=== PATIENT | female | born 2000 | race Caucasian/White ===

== ENCOUNTER 2023-09-21 09:18 | Outpatient (CLI) | payer BC, SELFPAY ==
[2023-09-23 08:24] LABS: Hepatitis B Surf Ab Quant 11.3 mIU/mL (Immunity>10)
== END 2023-09-21 23:59 | disposition home or self-care (01) ==
LOC: LAB.DROPOF 09-22 09:19
PROVIDERS: PCP Internal Medicine; Visit Provider Internal Medicine
DX: Z92.29 Personal history of other drug therapy (principal); Z02.0 Encounter for examination for admission to educational institution
CPT/HCPCS: 86706

== ENCOUNTER 2024-10-09 12:00 | Outpatient (CLI) | payer BC, SELFPAY ==
[2024-10-09 14:34] LABS: Hematocrit 41.1 % (37.0-47.0); Hemoglobin 13.4 g/dL (12.2-16.2); Immature Granulocytes % 0.3 %; Mean Corpuscular HGB Conc 32.6 g/dL (31.8-35.4); Mean Corpuscular Hemoglobin 27.9 pg (27.0-31.2); Mean Corpuscular Volume 85.6 fl (81-99); Nucleated Red Blood Cells % 0 %; Platelet Count 429 K/mm3 (142-424); Red Blood Count 4.80 M/mm3 (4.20-5.40); Red Cell Distribution Width-SD 39.9 fL; White Blood Count 6.6 K/mm3 (4.8-10.8)
--- OUTSIDE RECORDS SUMMARY | 2024-10-10 13:05 | XMS_ITS | Patient Health Record ---
Author Organization [facility] Address [address] [place] [address] Care Team Providers Care Dynamite Cartridge Crimper Name Role Phone NO PCP Primary Care Provider Marcos Koch Unavailable [phone] Allergies Allergen (clinical drug ingredient) Drug/Non Drug Allergy documented on EMR Reaction Allergy Type Onset Date Status amoxicillin Amoxicillin gastrointestinal upset Drug Allergy Active sulfamethoxazole / trimethoprim Bactrim anaphylaxis Drug Allergy Active Results Component Value Reference Range Notes Flu/COVID Rapid Antigen ([facility]) Reviewed date:04/03/2024 12:40:39 PM Interpretation:Negative Performing Lab: Notes/Report: Negative Flu A negative Negative - Positive Flu B negative Negative - Positive SARS CoV 2 negative Negative - Positive Rapid Strep Screen ([facility]) Reviewed date:04/03/2024 12:40:06 PM Interpretation:Negative Performing Lab: Notes/Report: Negative Negative negative Reason For Referral No Information Medications Medication SIG (Take, Route, Frequency, Duration) Notes Start Date End Date Status Escitalopram Oxalate 10 MG Oral Active Wellbutrin XL 150 MG 1 tablet in the mor clara Orally Once a day Active Albuterol Sulfate HFA 108 (90 Base) MCG/ACT 2 puffs as needed Inhalation every 6 hours; Duration: 10 days 04/03/2024 Active Phenergan 25 MG/ML as directed Injection Active Ondansetron 4 MG 1 tablet on the tong ue and allow to dissolve Orally Once a day Active Famotidine 20 MG 1 tablet at bedtime as needed Orally Once a day Active 28-0.8 MG 1 tablet Orally Once a day Active Social History Tobacco Use: Social History Observation Description Date Details (start date - stop date) Never Smoker NA - NA Tobacco Control (Standard) Question Answer Notes Tobacco use: Nonsmoker AUDIT-C (Standard) Question Answer Notes Did you have a drink containing alcohol in the p ast year? No Points 0 Interpretation Negative Problems Problem Type SNOMED Code ICD Code Onset Dates Problem Status W/U Status Risk Notes Problem Seasonal allergy (760601856) Seasonal allergies (J30.2) Active confirmed Problem Anxiety (83571848) Anxiety (F41.9) Active confirmed Problem Depression (184603510) Depression (F32.A) Active confirmed Problem Obesity (458305358) Obesity (BMI 30-39.9) (E66.9) Active confirmed Problem Body mass index 30.00 to 34.99 (461169756107355 ) BMI 31.0-31.9,adult (Z68.31) Active confirmed Problem Obesity due to excess calories (056454456) Other obesity due to excess calories (E66.09) Active confirmed Problem Body mass index 30.00 to 34.99 (493366643253579 ) Body mass index [BMI] 31.0-31.9, adult (Z68.31) Active confirmed Problem Acute respiratory infection (848724640) Acute respiratory infection (J98.8) Active confirmed Problem Sinus congestion (91610645) Sinus congestion (R09.81) Active confirmed Problem Non-suppurative otitis media (165321582) Middle ear effusion, bilateral (H65.93) Active confirmed Problem Acute bilateral otitis media (766320834) Acute bilateral otitis media (H66.93) Active confirmed Problem gestation period, 23 weeks (83550134) 23 weeks gestation of (Z3A.23) Active confirmed Problem Elevated blood pressure (31166777) Elevated blood pressure (I10) Active confirmed Vital Signs Temperature 98.1 degrees Fahrenheit 04/03/2024 Respiratory Rate 18 /min 04/03/2024 Blood pressure diastolic 78 mm Hg 04/03/2024 Height 067 in 04/03/2024 Blood pressure systolic 126 mm Hg 04/03/2024 Weight 0240 lbs 04/03/2024 BMI 37.59 kg/m2 04/03/2024 Encounters Encounter Location Date Provider Diagnosis [address] [address] 04/03/2024 Marcos Morseome 23 weeks gestation of Z3A.23 ; Acute respiratory infection J98.8 ; Acute bilateral otitis media H66.93 ; Middle ear effusion, bilateral H65.93 ; Sinus congestion R09.81 ; Elevated blood pressure I10 ; Encounter for screening for COVID-19 Z11.52 and Sore throat J02.9 Assessments Encounter Date Diagnosis (ICD Code) Assessment Notes Treatment Notes Treatment Clinical Notes Section Notes 04/03/2024 23 weeks gestation of (ICD-10 - Z3A.23) Weeks 22 to 26 of Your : Care Instructions material was published 04/03/2024 Acute respiratory infection (ICD-10 - J98.8) Patient will clear medications with BUILD MANAGER before taking. Will also inquire if she can taken Mucinex. 04/03/2024 Acute bilateral otitis media (ICD-10 - H66.93) Ear Infection (Otitis Media): Care Instructions material was published 04/03/2024 Middle ear effusion, bilateral (ICD-10 - H65.93) Middle Ear Fluid: Care Instructions material was published 04/03/2024 Sinus congestion (ICD-10 - R09.81) 04/03/2024 Elevated blood pressure (ICD-10 - I10) 04/03/2024 Encounter for screening for COVID-19 (ICD-10 - Z11.52) 04/03/2024 Sore throat (ICD-10 - J02.9) Sore Throat: Care Instructions material was published 04/03/2024 Other Cephalexin material was published, Albuterol Oral Inhalation material was published Plan Of Treatment No Information Insurance Providers Payer Name Payer Address Payer Phone Subscriber Number Group Number Insured Name Patient Relationship to Insured Coverage Start Date Coverage End Date [facility] [address] [place] [address] [phone] [id number] JEANNETTE KEITH Self - patient is the insured Medical (General) History Medical History History ICD Code Seasonal allergies J30.2 Anxiety F41.9 Depression F32.A 23 weeks gerd morning sickness Surgical History Surgery Date(Month/Year) gum graph eye muscle surgery T & A bone cyst removed from left humerous Hospitalization History Reason Date(Month/Year) surgeries
--- OUTSIDE RECORDS SUMMARY | 2024-10-10 13:05 | XMS_ITS | Encounter Summary ---
Author Organization Healthcare Address [address] [place] [id number] Care Team Providers Care Press Room Supervisor Name Role Phone Brandon Mike MD Primary Care Provider [phone] Encounter Details Date Type Department Care Team (Late st Contact Info) Description 06/29/2024 Results Follow-Up Obstetrics & Gynecology [address] [place] [address] Brandon Mike MD [address] [place] [address] Social History Tobacco Use Types Packs/Day Years Used Date Smoking Tobacco: Never Smokeless Tobacco: Never Alcohol Use Standard Drinks/Week Comments Not Currently 0 (1 standard drink = 0.6 oz pur e alcohol) occ PHQ-2 Answer Date Recorded Patient Health Questionnaire-2 Score 0 08/09/2024 PHQ-9 Answer Date Recorded Patient Health Questionnaire-9 Score 0 06/07/2024 Calvin Depression Scale Answer Date Recorded Calvin Depression Scale Total 10 08/09/2024 The thought of harming myself has occurred to me . Never 08/09/2024 Comments Yes Sex and Gender Information Value Date Recorded Sex Assigned at Not on file Legal Sex Female 3:32 PM EDT Gender Identity Not on file Sexual Orientation Not on file documented as of this encounter Functional Status * Over the past 2 weeks, how often have you been bothered by any of the following problems? Question Answer Date of Assessment Author Little interest or pleasure in doing things Not at all 08/09/2024 10:16 AM EDT Lynn Luke Feeling down, depressed, or hopeless Not at all 08/09/2024 10:16 AM EDT Lynn Luke Patient Health Questionnaire -2 Score 0 08/09/2024 10:16 AM EDT Lynn Luke * If you checked off any problems on this questionnaire so far, Question Answer Date of Assessment Author How difficult have these problems made it for you to do your work, take care of things at home, or get along with other people? Not difficult at all 08/09/2024 10:16 AM EDT Lynn Luke documented as of this encounter Plan of Treatment Upcoming Encounters Date Type Department Care Team (Late st Contact Info) Description 10/25/2024 3:40 PM EDT Office Visit Obstetrics & Gynecology [address] [place] [address] Brandon Mike MD [address] [place] [address] documented as of this encounter Goals Goal Patient Goal Type Associated Problems Recent Progress Patient-Stated? Author Delayed Care Plan CPM S24 PP LABOR (OBSTETRICS) No Open Scheduling, Background documented as of this encounter Visit Diagnoses Not on filedocumented in this encounter Additional Health Concerns Active Problems Noted Date Diagnosed Date CPM S24 PP LABOR (OBSTETRICS) 02/19/2024 Assessment Noted Time PHQ-9 Depression Total Score: 0 06/08/19 25 9:41 AM EDT A fall risk assessment has been complete d for the patient 06/28/2024 10:16 AM EDT A Body Mass Index follow-up plan has been documented for the patient 06/28/2024 12:36 PM EDT documented as of this encounter Care Teams Press Room Supervisor Relationship Specialty Start Date End Date Brandon Mike MD [address] [place] [address] PCP - General Obstetrics and Gynecology 06/21/24 documented as of this encounter
--- OUTSIDE RECORDS SUMMARY | 2024-10-10 13:05 | XMS_ITS | Clinical Summary ---
Author Organization [facility] Address [address] [place] [address] Care Team Providers Care Manager Integrated Name Role Phone Brandon Mike MD Primary Care Provider [phone] Allergies Active Allergy Reactions Criticality Noted Date Comments Amoxicillin Other - please document in the comment field Low 09/27/2022 Nausea and vomiting Sulfa Drugs Anaphylaxis High 06/28/2017 Sulfamethoxazole-Trime thoprim Anaphylaxis High 10/26/2012 Medications buPROPion XL (Wellbutrin XL) 150 MG 24 hr tablet Take 2 tablets (300 mg) by mouth 1 (one) time each day in the morning. 3 Active Vit-Fe Fumarate-FA ( Vitamins) 28-0.8 MG tabletIndications: 7 weeks gestation of Take 1 tablet by mouth 1 (one) time each day. 30 tablet 11 4 12/14/19 25 Active escitalopram (Lexapro) 20 MG tabletIndications: Anxiety,Other depression Take 1 tablet by mouth daily. 60 tablet 3 5 Active Drospirenone (Slynd) 4 MG tabletIndications: Encounter for initial prescription of contraceptive pills Take 1 tablet by mouth daily. 90 tablet 3 5 Active Active Problems Problem Noted Date Diagnosed Date Gestational hypertension wit hout significant proteinuria, 07/26/2024 Cellulitis 07/26/2024 33 weeks gestation of 06/15/2024 Dysuria during in third trimester 03/2024 Gastroesophageal reflux disease without esophagi tis 01/29/2024 Rh negative state in antepartum period 4 Assessment & Plan (05/10/2024 1:09 PM EDT): S/p Rhophylac 05/10 Assessment & Plan (04/26/2024 8:29 AM EDT): Rh negative - needs Rhogam at 28 weeks Assessment & Plan (03/30/2024 1:14 PM EST): Rh negative - needs Rhogam at 28 weeks Assessment & Plan (01/29/2024 12:02 PM EST): Rh negative - needs Rhogam at 28 weeks 32 weeks gestation of 12/21/2023 Overview (06/03/2024): Labs reviewed: O negative; Rubella immune; other PNL WNL. Ultrasounds: Dated by TVUS at 7w1d (JAMIE 07/31/24) - inconsistent with LMP. FTS US WNL - NT 1.5 mm. Anatomy US 03/27: vtx, ant plac, 3VC, normal fluid, growth appropriate, complete anatomy survey WNL, CL normal. Genetic Screening: NIPT low risk; NT 1.5 mm. Immunizations: Flu vax 02/23. Tdap given 05/10. Delivery Planning: Anticipate Feeding: Discuss further Contraception: Discuss further Assessment & Plan (06/03/2024 6:01 PM EDT): Labs reviewed: O Neg -- Rhophylac given 05/10. Abnormal 1h GTT -- passed 3h GTT (4/4 values). S>D -- growth US today WNL -- 51% growth, 34% AC, vertex. Continue vitamins. Continue Pepcid for GERD. Reviewed PTL/FM precautions. Assessment & Plan (05/10/2024 1:09 PM EDT): Labs reviewed: O negative; Rubella immune; other PNL WNL. Ultrasounds: Dated by TVUS at 7w1d (JAMIE 07/31/24) - inconsistent with LMP. FTS US WNL - NT 1.5 mm. Anatomy US 03/27: vtx, ant plac, 3VC, normal fluid, growth appropriate, complete anatomy survey WNL, CL normal. Genetic Screening: NIPT low risk; NT 1.5 mm. Immunizations: Flu vax 02/23. Tdap given 05/10. Delivery Planning: Anticipate Feeding: Discuss further Contraception: Discuss further Abnormal 1h GTT -- passed 3h GTT (4/4 values). Rhophylac given 05/10. S>D -- growth US in 3T, ordered. Continue vitamins. Continue Pepcid for GERD. Discussed support belt for RL pain, pillow support at night. Reviewed PTL/FM precautions. Assessment & Plan (04/26/2024 8:28 AM EDT): Labs reviewed: O negative; Rubella immune; other PNL WNL. Ultrasounds: Dated by TVUS at 7w1d (JAMIE 07/31/24) - inconsistent with LMP. FTS US WNL - NT 1.5 mm. Anatomy US 03/27: vtx, ant plac, 3VC, normal fluid, growth appropriate, complete anatomy survey WNL, CL normal. Genetic Screening: NIPT low risk; NT 1.5 mm. Immunizations: Flu vax 02/23. Discuss Tdap next visit. Delivery Planning: Anticipate Feeding: Discuss further Contraception: Discuss further Glucola, CBC, 2T Trep AB today. Rhophylac next visit. S>D today -- will get growth US in 3T. Continue vitamins. Continue Pepcid for GERD. Discussed support belt for RL pain, pillow support at night. Reviewed PTL/FM precautions. Assessment & Plan (03/30/2024 1:13 PM EST): Labs reviewed: O negative; Rubella immune; other PNL WNL. Ultrasounds: Dated by TVUS at 7w1d (JAMIE 07/31/24) - inconsistent with LMP. FTS US WNL - NT 1.5 mm. Anatomy US 03/27: vtx, ant plac, 3VC, normal fluid, growth appropriate, complete anatomy survey WNL, CL normal. Genetic Screening: NIPT low risk; NT 1.5 mm. Immunizations: Flu vax 1/10. Discuss Tdap next visit. Delivery Planning: Anticipate Feeding: Discuss further Contraception: Discuss further Continue vitamins. Continue unisom/B6 PRN -- N/V resolved Continue Pepcid for GERD. Discussed Gaviscon as OTC option. Offered protonix if Gaviscon + pepcid does not improve sxs. Reviewed precautions to call or present for evaluation including: refractory nausea/vomiting, persistent severe abdominal pain, bright red vaginal bleeding similar to a period, or fever >101F. Assessment & Plan (02/24/2024 8:24 AM EST): Labs reviewed: O negative; Rubella immune; other PNL WNL. Ultrasounds: Dated by TVUS at 7w1d (JAMIE 07/31/24) - inconsistent with LMP. FTS US WNL - NT 1.5 mm. Anatomy US ordered. Genetic Screening: NIPT low risk; NT 1.5 mm. Immunizations: Flu vax today 02/23. Delivery Planning: Anticipate Feeding: Discuss further Contraception: Discuss further Continue vitamins. Continue unisom/B6 for nausea/vomiting of , improved, nearly resolved. Continue Pepcid for GERD. Reviewed precautions to call or present for evaluation including: refractory nausea/vomiting, persistent severe abdominal pain, bright red vaginal bleeding similar to a period, or fever >101F. Assessment & Plan (01/29/2024 12:00 PM EST): Labs reviewed: O negative; Rubella immune; other PNL WNL. Pap UTD - negative cytology 09/2023 - repeat in 2026. Ultrasounds: Dated by TVUS at 7w1d (JAMIE 07/31/24) - inconsistent with LMP. FTS US WNL - NT 1.5 mm. Anatomy US ordered. Genetic Screening: NIPT low risk; NT 1.5 mm. Immunizations: briefly discussed flu vax recommendation today. Considering - next visit! Delivery Planning: Anticipate Feeding: Discuss further Contraception: Discuss further Continue vitamins. Continue unisom/B6 for nausea/vomiting of , improving. Rx'd zofran for rescue. Discussed small frequent meals. Pepcid Rx'd for GERD. Reviewed precautions to call or present for evaluation including: refractory nausea/vomiting, persistent severe abdominal pain, bright red vaginal bleeding similar to a period, or fever >101F. Assessment & Plan (12/21/2023 7:27 AM EST): Labs today - not done 2/2 multiple failed attempts. Plan to return later this week when nausea/vomiting better controlled & PO hydration improved. Urine G/C, culture, UDS done today, pending. Pap UTD - negative cytology 09/2023 - repeat in 2026. Ultrasounds: Dated by today's TVUS at 7w1d (JAMIE 07/31/24) - inconsistent with LMP. NT US ordered for 12 weeks. Genetic Screening: Discussed first and second trimester screening options including NIPT, NT US, FTS. Patient elects for NIPT & NT US, scheduled. Immunizations: briefly discussed flu vax recommendation today. Considering - next visit! Delivery Planning: Anticipate Feeding: Discuss further Contraception: Discuss further Continue vitamins. Rx'd unisom/B6, phenergan for nausea/vomiting of . Discussed small frequent meals. Mary chews discussed. Reviewed precautions to call or present for evaluation including: refractory nausea/vomiting, persistent severe abdominal pain, bright red vaginal bleeding similar to a period, or fever >101F. New OB packet given today. NIPT & NT US at 12 weeks Nausea and vomiting in pregn marcus prior to 22 weeks gestation 12/21/2023 Acanthosis 11/18/2021 09/16/2022 Cervical radiculopathy 11/18/2021 3 Anxiety and depression 05/12/2021 3 Assessment & Plan (05/10/2024 10:08 AM EDT): Stable & well-controlled on Lexapro + Wellbutrin. Continue throughout . At risk for PPD. Continue to monitor. Assessment & Plan (04/26/2024 8:28 AM EDT): Stable & well-controlled on Lexapro + Wellbutrin. Continue throughout . At risk for PPD. Continue to monitor. Assessment & Plan (03/30/2024 1:14 PM EST): Stable & well-controlled on Lexapro + Wellbutrin. Continue throughout . At risk for PPD. Continue to monitor. Assessment & Plan (02/24/2024 7:51 AM EST): Stable & well-controlled on Lexapro + Wellbutrin. Continue throughout . At risk for PPD. Continue to monitor. Assessment & Plan (01/29/2024 12:01 PM EST): Stable & well-controlled on Lexapro + Wellbutrin. Continue throughout . At risk for PPD. Continue to monitor. Assessment & Plan (12/21/2023 7:27 AM EST): Stable & well-controlled on Lexapro + Wellbutrin. Continue throughout . At risk for PPD. Continue to monitor. 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 Esotropia 04/19/2007 09/16/2022 Encounters Date Type Department Care Team Description 08/09/2024 10:20 AM EDT Visit Obstetrics & Gynecology [address] [place] [address] Brandon Mike MD examination following delivery (Primary Dx); Gestational hypertension without significant proteinuria, ; Encounter for initial prescription of contraceptive pills 08/09/2024 Travel 08/06/2024 Travel 07/26/2024 10:20 AM EDT Visit Obstetrics & Gynecology [address] [place] [address] Brandon Mike MD examination following delivery (Primary Dx); Cellulitis, unspecified cellulitis site; Gestational hypertension without significant proteinuria, 07/26/2024 Travel 07/25/2024 Travel 07/19/2024 9:00 AM EDT Visit Obstetrics & Gynecology [address] [place] [address] Brandon Mike MD examination following delivery (Primary Dx); Cellulitis, unspecified cellulitis site 07/19/2024 Travel 07/16/2024 Travel 07/16/2024 Telephone Obstetrics & Gynecology [address] [place] [address] Brandon Mike MD 07/15/2024 Outside Procedure External Location [address] [place] [address] Haydee Brian MD 07/15/2024 Orders Only External Location [address] [place] [address] Haydee Brian MD 07/14/2024 Orders Only External Location [address] [place] [address] Haydee Brian MD 07/13/2024 Orders Only External Location [address] [place] [address] Brandon Mike MD 07/12/2024 8:00 AM EDT Routine Obstetrics & Gynecology [address] [place] [address] Brandon Mike MD 37 weeks gestation of (Primary Dx) 07/12/2024 Orders Only External Location [address] [place] [address] Brandon Mike MD 07/12/2024 Travel 07/10/2024 Travel from Last 3 Months Immunizations Immunization Administration Dates Next Due Influenza, seasonal, injectable, preservative fr ee 02/24/2024 Rho (D) Immune Globulin 05/10/2024 Tdap 05/10/2024 Family History Medical History Relation Name Comments Cerebral palsy Brother Heart disease Father Intervertebral Disc Degeneration Father Clotting disorder Maternal Grandfather Breast cancer Maternal Grandmother Cancer Maternal Grandmother Breast Diabetes Maternal Grandmother Type 1 Rheum arthritis Maternal Grandmother Diabetes Mother Type 1 Thyroid disease Mother Diabetes Mother's Sister 1 Type 1 Thyroid disease Mother's Sister 2 Cancer Paternal Grandfather Skin wi th mets Cancer Paternal Grandmother Ovarian Hypertension Paternal Grandmother Ovarian cancer Paternal Grandmother Relation Name Status Comments Brother Alive Father Alive Maternal Grandfather Alive Maternal Grandmother Alive Mother Alive Mother's Sister 1 Alive Mother's Sister 2 Alive Paternal Grandfather Alive Paternal Grandmother Social History Tobacco Use Types Packs/Day Years Used Date Smoking Tobacco: Never Smokeless Tobacco: Never Tobacco Cessation:Counseling Given: Not Answered Alcohol Use Standard Drinks/Week Comments Not Currently 0 (1 standard drink = 0.6 oz pur e alcohol) occ PHQ-2 Answer Date Recorded Patient Health Questionnaire-2 Score 0 08/09/2024 PHQ-9 Answer Date Recorded Patient Health Questionnaire-9 Score 0 06/07/2024 Staley Depression Scale Answer Date Recorded Staley Depression Scale Total 10 08/09/2024 The thought of harming myself has occurred to me . Never 08/09/2024 Comments No Sex and Gender Information Value Date Recorded Sex Assigned at Not on file Legal Sex Female 3:32 PM EDT Gender Identity Not on file Sexual Orientation Not on file Last Filed Vital Signs Vital Sign Reading Time Taken Comments Blood Pressure 107/69 08/09/2024 10:15 AM EDT Pulse 89 08/09/2024 10:15 AM EDT Temperature 37.1 C (98.7 F) 08/09/2024 10:15 AM EDT Respiratory Rate 18 06/25/2024 8:35 PM EDT Oxygen Saturation 98% 08/09/2024 10:15 AM EDT Inhaled Oxygen Concentration - - Weight 108 kg (238 lb 1.6 oz) 08/09/2024 10:15 A M EDT Height 170.2 cm (5' 7 ) 08/09/2024 10:15 AM EDT Body Mass Index 37.29 08/09/2024 10:15 AM EDT Plan of Treatment Upcoming Encounters Date Type Department Care Team (Late st Contact Info) Description 10/25/2024 3:40 PM EDT Office Visit Obstetrics & Gynecology [address] [place] [address] Brandon Mike MD [address] [place] [address] Health Maintenance Due Date Last Done Comments [facility]-Infant/Child/Adol SDOH Screenings 2000 [facility]-Varicella Vaccines (1 of 2 - 13+ 2-dose series) 2013 HPV Vaccines (1 - 3-dose series) 05/27/2015 [facility]- SDOH Screenings 2018 [facility]-Adult SDOH Screenings 2018 [facility]-Hepatitis B Vaccines (1 of 3 - 19+ 3-dose series) 05/27/2019 [id number] Vaccine (1 - 2023- season) 2023 [facility]-Influenza Vaccine (#1) 2024 02/24/2024 [facility]-Depression Screening 08/09/2025 025, 08/09/2024, 06/07/2024 [facility]-Pap Smear 09/16/2025 09/16/2022 [facility]-DTaP,Tdap,and Td Vaccines (2 - Td or Tdap) 05/10/2034 05/10/2024 [facility]-Zoster Vaccines (1 of 2) 2050 [facility]-HIV Screening Completed 01/06/2024 [facility]-Hepatitis C Screening Completed 01/06/2024 [facility]-Obesity Intervention Completed 025, 07/26/2024, 07/19/2024, Additional history exists [facility]-HIB Vaccines Aged Out No longer e ligible based on patient's age to complete this topic [facility]-Hepatitis A Vaccines Aged Out No longer eligible based on patient's age to complete this topic [facility]-IPV Vaccines Aged Out No longer e ligible based on patient's age to complete this topic [facility]-Pneumococcal Vaccine: Pediatrics (0 to 5 Years) and At-Risk Patients (6 to 49 Years) Aged Out No longer eligible based on patient's age to complete this topic [facility]-Rotavirus Vaccines Aged Out No lo nger eligible based on patient's age to complete this topic Goals Goal Patient Goal Type Associated Problems Recent Progress Patient-Stated? Author Delayed Care Plan CPM S24 PP LABOR (OBSTETRICS) No Open Scheduling, Background Procedures Procedure Name Priority Date/Time Associated Diagnosis Comments CT ABDOMEN PELVIS W IV CONTRAST 07/15/2024 9:34 AM EDT CBC WITH AUTO DIFFERENTIAL Routine 07/15/2024 2:05 AM EDT CBC W/O DIFFERENTIAL Routine 07/14/2024 5:15 AM EDT URINE CULTURE Routine 07/13/2024 4:40 AM EDT TYPE AND SCREEN Routine 07/12/2024 10:20 AM EDT CREATININE, SERUM Routine 07/12/2024 10: 20 AM EDT LACTATE DEHYDROGENASE, PLASMA Routine 07/12/2024 10:20 AM EDT URIC ACID, PLASMA Routine 07/12/2024 10: 20 AM EDT ASPARTATE AMINOTRANSFERASE, PLASMA Routine 07/12/2024 10:20 AM EDT ALANINE AMINOTRANSFERASE, PLASMA Routine 07/12/2024 10:20 AM EDT URINE TOTAL PROTEIN/CREATININE ([facility]) Routine 07/12/2024 9:39 AM EDT CBC WITH AUTO DIFFERENTIAL Routine 07/12/2024 9:39 AM EDT POCT URINALYSIS DIPSTICK Routine 07/12/2024 8:33 AM EDT 37 weeks gestation of HEPATITIS C ANTIBODY W/REFLEX TO HCV QUANT PCR Routine 01/06/2024 8:12 AM EST test positive HIV 1/2 ANTIBODY/ANTIGEN SCREEN WITH REFLEX TO HIV I/II DIFFERENTIATION Routine 01/06/2024 8:12 AM EST test positive PAP TEST - CYTOLOGY Routine 09/16/2022 8 :45 AM EDT Encounter for gynecological examination without abnormal finding from Last 3 Months or Most Recently Relevant to Health Maintenance Results * CT Abdomen Pelvis w IV Contrast (07/15/2024 9:34 AM EDT) Anatomical Region Laterality Modality Abdomen, Pelvis Computed Tomogra phy 07/15/2024 9:34 AM EDT Narrative 07/15/2024 11:41 AM EDT [address] [address] Name: CARMELA JONAS Exam Date: 07/15/2024 : 2000 Age 24 years Gender: F Physician: HAYDEE BRIAN Facility: [facility] Facility HSV: Inpatient Exam: CT ABD PEL W (IV CONT ONLY) EXAMINATION: CT ABDOMEN PELVIS WITH IV CONTRAST HISTORY: post pain, erythema around incision. COMPARISON: None. TECHNIQUE: Contiguous axial images through the abdomen and pelvis were acquired following the administration of intravenous contrast. Reconstructed images in the coronal and sagittal planes were reviewed. CT scans at this facility use dose modulation, iterative reconstruction and/or weight based dosing when appropriate to reduce radiation dose to as low as reasonably achievable. FINDINGS: A calcified granuloma is seen in the left lower lobe. There is trace linear atelectasis in the lower lobes bilaterally. The liver, gallbladder, pancreas, spleen, adrenal glands, and kidneys are within normal limits. The abdominal aorta is normal caliber. The stomach and small bowel loops are unremarkable. The appendix is normal. The colon is within normal limits. The urinary bladder is unremarkable. The enlarged uterus contains a trace amount of endometrial gas indicative of postoperative change. A small amount of subcutaneous gas is seen along the anterior pelvic wall with subcutaneous inflammatory stranding and skin thickening. There is no loculated fluid collection to suggest an abscess. A few tiny pockets of soft tissue gas are seen along the lower rectus muscle and in the right inguinal region. Soft tissue gas in the posterior lumbar right paraspinal musculature can be seen with post epidural changes. There is no ascites, inflammatory stranding in the mesentery or pneumoperitoneum. There is no lymphadenopathy in the abdomen or pelvis. No acute osseous abnormality. IMPRESSION: Expected postoperative changes from recent section. Mild skin thickening and subcutaneous inflammatory stranding along the anterior pelvic wall are within expected limits for post changes. These findings may also be seen with acute cellulitis. No evidence for abscess. Electronically signed by: Fernando Mcclure MD 07/15/2024 11:38 AM EDT Dictated By: Fernando Mcclure Transcribed By: Transcribed On: 07/15/2024 11:38 AM Electronically signed by: Fernando Mcclure 07/15/2024 Thank you for referring CARMELA JONAS to [facility]. Legally authenticated by DARRIUS Licona 2024-07-15 11:38:27 Procedure Note Provider, Generic [facility] - 07/15/2024 [place] [address] Name: CARMELA JONAS Exam Date: 07/15/2024 : 2000 Age 24 years Gender: F Physician: HAYDEE BRIAN Facility: [facility] Facility HSV: Inpatient Exam: CT ABD PEL W (IV CONT ONLY) EXAMINATION: CT ABDOMEN PELVIS WITH IV CONTRAST HISTORY: post pain, erythema around incision. COMPARISON: None. TECHNIQUE: Contiguous axial images through the abdomen and pelvis were acquired following the administration of intravenous contrast.Reconstructed images in the coronal and sagittal planes were reviewed. [facility] use dose modulation, iterative reconstruction and/or weightbased dosing when appropriate to reduce radiation dose to as low as reasonably achievable. FINDINGS: A calcified granuloma is seen in the left lower lobe. There istrace linear atelectasis in the lower lobes bilaterally. The liver, gallbladder, pancreas, spleen, adrenal glands, and kidneysare within normal limits. The abdominal aorta is normal caliber. The stomach and small bowel loops are unremarkable. The appendix isnormal. The colon is within normal limits. The urinary bladder is unremarkable. The enlarged uterus contains a trace amount of endometrialgas indicative of postoperative change. A small amount of subcutaneous gas isseen along the anterior pelvic wall with subcutaneous inflammatory strandingand skin thickening. There is no loculated fluid collection to suggest anabscess. A few tiny pockets of soft tissue gas are seen along the lower rectusmuscle and in the right inguinal region. Soft tissue gas in the posteriorlumbar right paraspinal musculature can be seen with post epidural changes. There is no ascites, inflammatory stranding in the mesentery or pneumoperitoneum. There is no lymphadenopathy in the abdomen or pelvis.No acute osseous abnormality. IMPRESSION: Expected postoperative changes from recent section. Mild skin thickening and subcutaneous inflammatory stranding along the anteriorpelvic wall are within expected limits for post changes. These findingsmay also be seen with acute cellulitis. No evidence for abscess. Electronically signed by: Fernando Mcclure MD 07/15/2024 11:38 AM EDT RP Dictated By: Fernando Mcclure Transcribed By: Transcribed On: 07/15/2024 11:38 AM Electronically signed by: Fernando Mcclure 07/15/2024 Thank you for referring CARMELA JONAS to [facility]. Legally authenticated by DARRIUS Licona 2024-07-15 11:38:27 us Haydee Brian MD IMG CT PROCEDURES Final Result * (ABNORMAL) CBC and Differential (07/15/2024 2:05 AM EDT) Only the most recent of2 resultswithin the time period is included. External WBC 14.7(H) 4.0 - 10.5 K/ul [facility] External Red Blood Cell (RBC) 3.4(L) 4.2 - 6.4 M/mm3 [facility] External Hemoglobin 10.5(L) 12.5 - 16.0 gm/dl [facility] External Hematocrit 31.0(L) 37.0 - 47.0 % [facility] External MCV 90.1 78 - 100 fl [facility] External MCH 30.5 27 - 31 pg [facility] External MCHC 33.9 32 - 36 g/dl [facility] External RDW 13.6 11.5 - 14.0 % [facility] External Platelets 244 150 - 450 K/ul [facility] External MPV 11.1(H) 6 - 9.5 fl [facility] External Neutrophils % 74.9(H) 43 - 65 % [facility] External Lymphocyte % 16.0(L) 20.5 - 45.5 % [facility] External Monocyte % 7.0 5.5 - 11.7 % [facility] External Eosinophil% 1.5 0.9 - 2.9 % [facility] External Basophil % 0.2 0.2 - 1.0 % [facility] External Immature Granulocyte% 0.4 0.0 - 0.8 % [facility] External Nucleated RBC % 0.0 % [facility] External Neutrophil# 11.0(H) 2.2 - 4.8 K/uL [facility] External Lymphocyte# 2.3 1.3 - 2.9 CELL/MCL [facility] External Monocyte# 1.0(H) 0.3 - 0.8 CELL/MCL [facility] External Eosinophils# 0.2 0 - 0.2 CELL/MCL [facility] External Baso# 0.0 0.0 - 1.0 CELL/MCL [facility] External Immature Granulocyte Abs 0.06 K/ul [facility] External Nucleated RBC Absolute 0.00 K/uL [facility] External Manual Differential NO [facility] 07/15/2024 2:05 AM EDT 07/15/2024 2:21 AM EDT us Haydee Brian MD LAB BLOOD ORDERABLES Fin al Result [facility] * (ABNORMAL) CBC W/O Differential (07/14/2024 5:15 AM EDT) External WBC 11.9(H) 4.0 - 10.5 K/ul [facility] External Red Blood Cell (RBC) 4.0(L) 4.2 - 6.4 M/mm3 [facility] External Hemoglobin 11.9(L) 12.5 - 16.0 gm/dl [facility] External Hematocrit 35.5(L) 37.0 - 47.0 % [facility] External MCV 88.3 78 - 100 fl [facility] External MCH 29.6 27 - 31 pg [facility] External MCHC 33.5 32 - 36 g/dl [facility] External RDW 13.2 11.5 - 14.0 % [facility] External Platelets 242 150 - 450 K/ul [facility] External MPV 11.3(H) 6 - 9.5 fl [facility] External Manual Differential NO [facility] 07/14/2024 5:15 AM EDT 07/14/2024 5:17 AM EDT us Haydee Brian MD LAB BLOOD ORDERABLES Fin al Result [facility] * Urine Culture (07/13/2024 4:40 AM EDT) External Comments JC 2024-07-14 1019 NO GROWTH 24 HOURS AAC 2024-07-17 944 NO GROWTH 48 HOURS [facility] 07/13/2024 4:40 AM EDT 07/13/2024 4:40 AM EDT us Brandon Mike MD LAB MICROBIOLOGY - GENERAL ORD ERABLES Final Result Performing Organization Address City/[facility]/ZIP Co de Phone Number [facility] * Aspartate Aminotransferase, Plasma (07/12/2024 10:20 AM EDT) External AST (SGOT) 11 0 - 37 U/L [facility] 07/12/2024 10:2 0 AM EDT 07/12/2024 10:33 AM EDT us Brandon Mike MD LAB BLOOD ORDERABLES Final Res ult Performing Organization Address [facility] Co de Phone Number [facility] * Alanine Aminotransferase, Plasma (07/12/2024 10:20 AM EDT) External ALT (SGPT) 19 0 - 65 U/L [facility] 07/12/2024 10:2 0 AM EDT 07/12/2024 10:33 AM EDT Brandon Mike MD LAB BLOOD ORDERABLES Final Res ult Performing Organization Address [facility] Phone Number [facility] * Type and Screen (07/12/2024 10:20 AM EDT) External History Check Completed [facility] External ABO/Rh O NEGATIVE [facility] External Antibody Screen NEGATIVE [facility] External Status Information Completed [facility] 07/12/2024 10:2 0 AM EDT 07/12/2024 11:08 AM EDT us Brandon Mike MD LAB BLOOD BANK TEST ORDERABLES Final Result Performing Organization Address [facility] Co de Phone Number [facility] * Uric Acid, Plasma (07/12/2024 10:20 AM EDT) External Uric Acid 5.4 2.6 - 6.0 mg/dL [facility] 07/12/2024 10:2 0 AM EDT 07/12/2024 10:33 AM EDT us Brandon Mike MD LAB BLOOD ORDERABLES Final Res ult Performing Organization Address [facility]/ZIP Co de Phone Number [facility] * Lactate Dehydrogenase, Plasma (07/12/2024 10:20 AM EDT) External LDH Lactate Dehydrogenase 133 0 - 190 U/L [facility] 07/12/2024 10:2 0 AM EDT 07/12/2024 10:33 AM EDT Brandon Mike MD LAB BLOOD ORDERABLES Final Res ult Performing Organization Address [facility] de Phone Number [facility] * Creatinine, serum (07/12/2024 10:20 AM EDT) External Creatinine Blood 0.6 0.6 - 1.3 mg/dL [facility] External Estimated GFR 128 60- mlpermin [facility] Comment: GFR LIMITATION: The eGFR equation CKD-EPI 2020 is not applicable for pediatric patients or greater than 90 years of age. The following conditions may alter the GFR result: extremes in body size, malnutrition or obesity, skeletal muscle disease, paraplegia or quadriplegia, vegetarian diet or rapidly changing kiney function. 07/12/2024 10:2 0 AM EDT 07/12/2024 10:33 AM EDT Brandon Mike MD LAB BLOOD ORDERABLES Final Res ult Performing Organization Address [facility] de Phone Number [facility] * Urine Total Protein/Creatinine ([facility]) (07/12/2024 9:39 AM EDT) External Creatinine Urine 186.0 MG/DL [facility] External Protein, Ur Random 28.8 6.0 - 250.0 mg/dL [facility] 07/12/2024 9:39 AM EDT 07/12/2024 9:53 AM EDT Brandon Mike MD LAB URINE ORDERABLES Final Res ult Performing Organization Address [facility] Co de Phone Number [facility] * (ABNORMAL) POCT Urinalysis Dipstick (07/12/2024 8:33 AM EDT) Pathologist [facility] POCT Urine Color Yellow POCT Urine Clarity Cloudy POCT Glucose Urine Negative Negative mg/dL POCT Bilirubin, Urine Negative Negative POCT Ketones, Urine Negative Negative mg/dL POCT Specific [place], Urine 1.025 POCT Blood, Urine Negative Negative POCT pH, Urine 7.0 5.0 to 8.0 POCT Protein, Urine Negative Negative mg/dL POCT Urobilinogen, Urine 0.2 0.2, 1 E.U./dL POCT Nitrite, Urine Negative Negative POCT Leukocyte Esterase, Urine Trace(A) Negative Test Strip Lot Number [id number] Test Strip Lot Expiration 11/2024 Urine Urine specimen obtained by clean catch procedure / Unknown 07/12/2024 8:33 AM EDT us Brandon Mike MD POINT OF CARE TEST ENTER/EDIT ORDERABLES Final Result * HIV 1 & 2 Antibody/Antigen Screen (01/06/2024 8:12 AM EST) Pathologist [facility] HIV 1 & 2 Antibody/Antigen Screen Non Reactive Non Reactive 01/06/2024 1:18 PM EST [facility] Comment:Screening for HIV 1 & 2 antibodies, and P24 antigen is NONREACTIVE. No confirmatory testing is required. Blood Venous blood specimen / Unknown Venipuncture / Unknown 01/06/2024 8:12 AM EST 01/06/2024 12:34 PM EST Brandon Mike MD LAB BLOOD ORDERABLES Final Res ult [facility] [address] [place] [address] * Hepatitis C Antibody w/Reflex to HCV Quant PCR (01/06/2024 8:12 AM EST) Pathologist [facility] Hepatitis C Antibody Negative Negative 01/06/2024 1:18 PM EST [facility] Blood Venous blood specimen / Unknown Venipuncture / Unknown 01/06/2024 8:12 AM EST 01/06/2024 12:34 PM EST us Brandon Mike MD LAB BLOOD ORDERABLES Final Res ult [facility] [address] [place] [address] * (ABNORMAL) Pap Test (09/16/2022 8:45 AM EDT) Case Report Cytology Case: [id number] Authorizing Provider: Layla Malone APRN, DNP Collected: 09/16/2022 0845 Ordering Location: Obstetrics & Gynecology Received: 09/17/2022 1039 First Screen: Aileen Jones Pathologist: Andreea Jones MD Specimen: ThinPrep Pap Test, Liquid-Based Cervical/Vaginal 09/28/2022 10:12 AM EDT [facility] Interpretation LOW GRADE SQUAMOUS INTRAEPITHELIAL LESION (LSIL)(A) 09/28/2022 10:12 AM EDT [facility] at 1012 EDT Specimen Adequacy Satisfactory for evaluation; endocervical/waddell sformation zone component present. Slide imaged by the ThinPrep Imaging system and selected 22 abreu reviewed then full manual screening. 09/28/2022 10:12 AM EDT [facility] Cervical cytology is a screening test primarily for squamous cancers and precursors and has associated false negative and positive results. New technologies such as liquid based sampling may decrease but will not eliminate all false negative results. Regular screening and follow-up of unexplained clinical signs and symptoms are recommended to minimize false negative results. Please see the ASCCP website (www.asccp.org)fo r followup recommendations. If HPV testing was requested, correlation with the results is suggested (please call Microbiology at [phone] for results). 09/28/2022 10:12 AM EDT [facility] Menstrual Status Cyclic 09/29/19 10:12 AM EDT [facility] Contraceptive History control pills 09/28/2022 10:12 AM EDT [facility] Screening Type Routine Screen 2022 10:12 AM EDT [facility] High Risk? No 09/28/2022 10:12 AM EDT [facility] HPV Testing Requested? Request HPV Testing if ASCUS (Women 25 Years or Older) 09/28/2022 10:12 AM EDT [facility] Previous Cancer History No 09/28/2022 10:12 AM EDT [facility] Clinical Information Z01.419 - Encounter for gynecological examination without abnormal finding [ICD-10-CM] 09/28/2022 10:12 AM EDT [facility] Last Menstrual Period 09/09/2022 09/28/2022 10:12 AM EDT [facility] Swab Vaginal and cervical cytologic material / Unknown Non-blood Collection / Unknown 09/16/2022 8:45 AM EDT 09/17/2022 10:39 AM EDT us Layla Malone RN LAB CYTOLOGY ORDERABLES Final Result [facility] [address] [place] [address] from Last 3 Months or Most Recently Relevant to Health Maintenance Additional Health Concerns Active Problems Noted Date Diagnosed Date CPM S24 PP LABOR (OBSTETRICS) 02/19/2024 Insurance ANTH Care Teams Manager Integrated Relationship Specialty [place] [address] [place] [address] (work) PCP - General Obstetrics and Gynecology 06/21/24
--- OUTSIDE RECORDS SUMMARY | 2024-10-10 13:05 | XMS_ITS | Encounter Summary ---
Author Organization Healthcare Address [address] [id number] Care Team Providers Care Vacuum Closing Machine Operator Name Role Phone Brandon Mike MD Primary Care Provider [phone] Encounter Details Date Type Department Care Team (Late st Contact Info) Description 07/16/2024 Telephone Obstetrics & Gynecology [address] [place] [address] Brandon Mike MD [address] [place] [address] Social History Tobacco Use Types Packs/Day Years Used Date Smoking Tobacco: Never Smokeless Tobacco: Never Alcohol Use Standard Drinks/Week Comments Not Currently 0 (1 standard drink = 0.6 oz pur e alcohol) occ PHQ-2 Answer Date Recorded Patient Health Questionnaire-2 Score 0 08/09/2024 PHQ-9 Answer Date Recorded Patient Health Questionnaire-9 Score 0 06/07/2024 [place] Depression Scale Answer Date Recorded [place] Depression Scale Total 10 08/09/2024 The thought [...] things Not at all 08/09/2024 10:16 AM EDLynn Bravo Feeling down, depressed, or hopeless Not at all 08/09/2024 10:16 AM MOISEST Lynn Luke Patient Health Questionnaire -2 Score [...] Lynn Luke documented as of this encounter Miscellaneous Notes * Telephone Encounter - Margie Felipe - 07/16/2024 10:22 AM EDT Clinical Concern/Question Reason for Call: Pt is wanting to know if she can change her 6/5 apt to a apt. Please call. Best contact number: [phone] (home) Optimal time of day to reach caller: ANYTIME Additional comments/information from caller: Not Applicable Note: Please do not reply to this message. Follow-up communication and further actions as a result of this message need to be communicated with the patient directly, if the patient is not active onMyChart. If the patient is active on MyChart, they will receive notification of the communication/outcome via [employer]. documented in this encounter Plan of Treatment Upcoming Encounters Date Type Department Care Team (Late Contact Info) Description 10/25/2024 3:40 PM EDT Office Visit Obstetrics & Gynecology [address] [place] [address] Brandon Mike MD [address] [place] [address] documented as of this encounter [...] Time PHQ-9 Depression Total Score: 0 06/08/19 9:41 AM EDT A fall risk assessment has been complete d for the patient 07/12/2024 8:12 AM EDT A Body Mass Index follow-up plan has been documented for the patient 07/12/2024 8:55 AM EDT documented as of this encounter Care Teams Vacuum Closing Machine Operator Relationship Specialty Start Date End Date Brandon Mike MD [address] [place] [id number] PCP - General Obstetrics and Gynecology 06/21/24 documented as of this encounter
--- OUTSIDE RECORDS SUMMARY | 2024-10-10 13:05 | XMS_ITS | Encounter Summary ---
Author Organization Healthcare Address [address] [id number] Care Team Providers Care Head Golf Coach Name Role Phone Brandon Mike MD Primary Care Provider [phone] Encounter Details Date Type Department Care Team (Late Contact Info) Description 07/15/2024 Outside Procedure External Location [address] [place] [address] Haydee Brian MD [address] [place] [address] Social History Tobacco Use Types Packs/Day Years Used Date Smoking Tobacco: Never Smokeless Tobacco: Never Alcohol Use Standard Drinks/Week Comments Not Currently 0 (1 standard drink = 0.6 oz pur e alcohol) occ PHQ-2 Answer Date Recorded Patient Health Questionnaire-2 Score 0 07/19/2024 PHQ-9 Answer Date Recorded Patient Health Questionnaire-9 Score 0 06/07/2024 [place] Depression Scale Answer Date Recorded [place] Depression Scale Total 11 07/19/2024 The thought of harming myself has occurred to me . Never 07/19/2024 Comments Yes Sex and Gender Information Value Date Recorded Sex Assigned at Not on file Legal Sex Female 3:32 PM EDT Gender Identity Not on file Sexual Orientation Not on file documented as of this encounter Plan of Treatment Upcoming Encounters Date Type Department Care Team ([facility] Contact Info) Description 10/25/2024 3:40 PM EDT Office Visit Obstetrics & Gynecology [address] [place] [address] Brandon Mike MD [address] [place] [address] documented as of this encounter Goals Goal Patient Goal Type Associated Problems Recent Progress Patient-Stated? Author Delayed Care Plan CPM S24 PP LABOR (OBSTETRICS) No Open Scheduling, Background documented as of this encounter Procedures Procedure Name Priority Date/Time Associated Diagnosis Comments CT ABDOMEN PELVIS W IV CONTRAST 07/15/2024 9:34 AM EDT documented in this encounter Results * CT Abdomen Pelvis w IV Contrast (07/15/2024 9:34 AM EDT) Anatomical Region Laterality Modality Abdomen, Pelvis Computed Tomogra phy 07/15/2024 9:34 AM EDT Narrative 07/15/2024 11:41 AM EDT [facility] [address] [place] [address] Name: JEANNETTE JONAS Exam Date: 07/15/2024 : 2000 Age 24 years Gender: F Physician: HAYDEE BRIAN Facility: [facility] Facility HSV: Inpatient Exam: CT ABD PEL [...] Fernando Mcclure 07/15/2024 Thank you for referring JEANNETTE JONAS to [facility]. Legally authenticated by DARRIUS Licona 2024-07-15 11:38:27 Procedure Note Provider, [facility] - 07/15/2024 [place] [address] Name: JEANNETTE JONAS Exam Date: 07/15/2024 : 2000 Age 24 years Gender: F Physician: HAYDEE BRIAN Facility: [facility] Facility HSV: Inpatient Exam: CT ABD PEL W (IV CONT ONLY) EXAMINATION: CT ABDOMEN PELVIS WITH IV CONTRAST HISTORY: post pain, erythema around incision. COMPARISON: None. TECHNIQUE: Contiguous axial images through the abdomen and pelvis were acquired following the administration of intravenous contrast.Reconstructed images in the coronal and sagittal planes were reviewed. CT [facility] use dose modulation, iterative reconstruction and/or [...] Fernando Mcclure 07/15/2024 Thank you for referring JEANNETTE JONAS to [facility]. Legally authenticated by DARRIUS Licona 2024-07-15 11:38:27 us Haydee Brian MD IMG CT PROCEDURES Final Result documented in this encounter Visit Diagnoses Not on filedocumented [...] documented as of this encounter Care Teams Head Golf Coach Relationship Specialty Start Date End Date Brandon Mike MD [address] [place] [address] PCP - General Obstetrics and Gynecology 06/21/24 documented as of this encounter
--- OUTSIDE RECORDS SUMMARY | 2024-10-10 13:06 | XMS_ITS | Encounter Summary ---
Author Organization Healthcare Address [address] [place] [address] Care Team Providers Care Warehouse Laborer Name Role Phone Brandon Mike MD Primary Care Provider [phone] Encounter Details Date Type Department Care Team (Late st Contact Info) Description 07/05/2024 Results Follow-Up Obstetrics & Gynecology [address] [place] [address] Robyn Venegas, STAGE SET UP WORKER, CN [address] [facility] [address] [place] [address] Social History Tobacco Use Types Packs/Day Years Used Date Smoking Tobacco: Never Smokeless Tobacco: Never Alcohol Use Standard Drinks/Week Comments Not Currently 0 (1 standard drink = 0.6 oz pur e alcohol) occ PHQ-2 Answer Date Recorded Patient Health Questionnaire-2 Score 0 08/09/2024 PHQ-9 Answer Date Recorded Patient Health Questionnaire-9 Score 0 06/07/2024 [place] Depression Scale Answer Date Recorded [place] Depression Scale Total 10 08/09/2024 The thought [...] EDT Office Visit Obstetrics & Gynecology [address] [place] [address] Brandon Mike MD [address] [place] [address] documented as of this encounter [...] has been complete d for the patient 07/05/2024 9:22 AM EDT A Body Mass Index follow-up plan has been documented for the patient 07/05/2024 10:00 AM EDT documented as of this encounter Care Teams Warehouse Laborer Relationship Specialty Start Date End Date Brandon Mike MD [address] [place] [address] PCP - General Obstetrics and Gynecology 06/21/24 documented as of this encounter
== END 2024-10-09 23:59 | disposition home or self-care (01) ==
LOC: LAB.DROPOF 10-10 12:59
PROVIDERS: PCP Internal Medicine; Visit Provider Internal Medicine
DX: K62.5 Hemorrhage of anus and rectum (principal)
CPT/HCPCS: 85025

== ENCOUNTER 2025-01-17 06:08 | Day surgery (SDC) | payer BC, SELFPAY ==
--- NOTE | 2025-01-13 10:29 | EXP.HP ---
History of Present Illness *Admission Date: 01/17/25 *History of present illness: Ms. Jonas is a 24-year-old female who is here for diagnostic colonoscopy. The patient has had rectal bleeding with some anorectal pain which is presumably hemorrhoidal. The patient does report ongoing anorectal pain/spasm both on the outside and inside. This does occur with bowel movements but also during sitting. She also has had bright red rectal bleeding in the commode with every bowel movement. She is not on any aspirin or NSAIDs. She was told that she has hemorrhoids on the outside but also that she has hemorrhoids on the inside. She has not had any anoscopy or colonoscopy. She does feel as if she is ripping sometimes with her bowel movements. She does use a stool softener as needed. She does report regular soft bowel movements that are occasionally loose. However, she does report incomplete defecation with excessive wiping and some bowel frequency. She has longer periods of time on the commode. She does have some bloating. She reports no abdominal pain. The examination is deemed medically necessary for diagnostic colonoscopy. The patient has been seen, interviewed and examined prior to the procedure by both myself and the anesthesia provider. [facility] Disclaimer: The information contained in this section may have been updated after the patient was seen, as this information can be updated by other users. Medical History Anxiety with depression Surgical History History of eye surgery History of tonsillectomy and adenoidectomy History of surgery on arm Family History Other Cancer Social History (Updated 01/17/25 @ 06:33 by Shena Carias RN) Smoking Status: Never smoker alcohol intake: never substance use type: denies use current occupational status: employed Travel in the last 8 weeks?: Inside the [place] caffeine: Yes Have you lived/traveled outside US in past 30 days?: No Contact w/someone who lives/traveled outside US past 30 days?: No Exposure to someone with infectious disease in past 14 days?: No Do you have a fever (greater than 100.4 F or 38 C)?: No Have you tested positive for COVID-19?: No Exposed to someone with COVID-19 in past 14 days?: No Do you have a sore throat?: No Do you have a cough?: No Do you have any weakness?: No Are you experiencing any nausea/vomitting?: No Do you have any diarrhea?: No Are you experiencing any unusual bleeding?: No Do you have any muscle aches/pain?: No Do you have any abdominal pain?: No Are you experiencing loss of taste or smell?: No Other Medical History Have you received the Pneumonia Vaccine: No Review of Systems Review of Systems Review of systems (narrative): Negative *Cardiovascular Comments: Negative *Gastrointestinal Comments: Negative *Genitourinary Comments: Negative *Musculoskeletal Comments: Negative *Neurologic Comments: Negative Meds Home Medications and Allergies Home Medications ?Medication ?Instructions ?Recorded ?Confirmed ?Type bupropion HCl 150 mg tablet,12 hr 300 mg (2 x 150 mg) PO DAILY #180 10/09/24 01/17/25 Rx sustained-release (Wellbutrin SR) ea escitalopram oxalate 20 mg tablet 20 mg PO DAILY #90 tabs 10/09/24 01/17/25 Rx nitroglycerin 0.4 % (w/w) rectal 1 inch AR BID Anorectal pain #30 12/11/24 01/17/25 Rx ointment grams sodium,potassium,mag sulfates 17.5 See Rx Instructions PO .COMPLEX 12/31/24 01/17/25 Rx gram-3.13 gram-1.6 gram oral soln #354 mL (Suprep Bowel Prep Kit) New Prescriptions to Start Prescriptions: Allergies Allergy/AdvReac Type Severity Reaction Status Date / Time Sulfa (Sulfonamide Allergy Severe Anaphylaxis Verified 01/15/25 10:43 Antibiotics) sulfamethoxazole (From Allergy Anaphylaxis Verified 01/17/25 06:27 Bactrim) trimethoprim (From Bactrim) Allergy Anaphylaxis Verified 01/17/25 06:27 amoxicillin AdvReac Vomiting Verified 01/15/25 10:43 Exam *Routine HEENT Exam Head: Present normocephalic Eye: Present EOMI and PERRL ENT: Present mucous membranes moist *Routine Neck Exam Neck: Present supple *Routine Respiratory Exam Respiratory: Present CTA bilaterally *Routine Cardiovascular Exam Cardiovascular: Present RRR *Routine Abdominal Exam Abdominal: Present soft and normoactive bowel sounds; Absent tenderness *Routine Rectal Exam Rectal:: deferred *Routine Genitalia Exam Genitalia:: deferred *Routine Extremities Exam Extremities: Absent cyanosis, clubbing or edema *Routine Skin Exam Skin: Present warm; Absent rash *Routine Neurological Exam Neurological: Present alert and oriented X3 Assessment and Plan *Assessment and plan (1) Bright red blood per rectum: Status: Acute Category: Medical Code(s): K62.5 - Hemorrhage of anus and rectum (2) Anorectal pain: Status: Acute Category: Medical Code(s): K62.89 - Other specified diseases of anus and rectum (3) Anorectal spasm: Status: Acute Category: Medical Code(s): K59.4 - Anal spasm (4) Incomplete defecation: Status: Acute Category: Medical Code(s): R15.0 - Incomplete defecation Plan A/P: 1. Bright red rectal bleeding with anorectal pain/spasm and incomplete defecation is the preprocedural diagnosis. The patient will be anesthetized/sedated using MAC sedation. The patient has been seen and examined. Cardiac and lung assessment prior to the examination is stable. Proceed with planned diagnostic colonoscopy.
--- NOTE | 2025-01-15 09:55 | SUR.PREOP ---
left message with callback number at this time
[2025-01-15 10:44] VITALS: BMI 22.4
[2025-01-17 06:28] VITALS: BP 136/75; PULSE 75; RESP 18; TEMP 36.4; O2SAT 100
[2025-01-17 06:31] LABS: Urine Pregnancy, HCG Qual. Negative (Negative)
--- NOTE | 2025-01-17 06:44 | HMH.PROCNOTE ---
[facility] Procedure Note Date: 01/17/25 Time: 08:04 Procedure Note:: Colonoscopy Procedure Report: Colonoscopy with cold biopsies and hemorrhoid band ligation Endoscopist: Jin Urrutia II, MD Referring physician: Jose Aguirre MD Date of Procedure: January 17, 2025 Equipment: Olympus [id number] adult colonoscope Sedation: MAC sedation Indication: Ms. Jonas is a 24-year-old female who is here for diagnostic colonoscopy. The patient has had rectal bleeding with some anorectal pain which is presumably hemorrhoidal. The patient does report ongoing anorectal pain/spasm both on the outside and inside. This does occur with bowel movements but also during sitting. She also has had bright red rectal bleeding in the commode with every bowel movement. She is not on any aspirin or NSAIDs. She was told that she has hemorrhoids on the outside but also that she has hemorrhoids on the inside. She has not had any anoscopy or colonoscopy. She does feel as if she is ripping sometimes with her bowel movements. She does use a stool softener as needed. She does report regular soft bowel movements that are occasionally loose. However, she does report incomplete defecation with excessive wiping and some bowel frequency. She has longer periods of time on the commode. She does have some bloating. She reports no abdominal pain. The patient has been using the combined MiraLAX plus Metamucil in the evenings. She does have improved bowel regularity but still has some incomplete bowel evacuation. The patient did use the nitroglycerin ointment but this resulted in headache within the first few minutes and she has only taken this a couple of times. The examination is deemed medically necessary for diagnostic colonoscopy. Procedure: Prior to the procedure, a history and physical exam was performed, and patient's medications and allergies were reviewed. The risks, benefits and alternatives of the sedation and procedure were discussed with the patient. All questions were answered and informed consent was obtained. The patient was brought to the procedure room. Patient identification and proposed procedure were verified by the physician and the nurse. The patient was placed in a left lateral decubitus position and the scope was passed under direct vision. Throughout the procedure, the patient's blood pressure, pulse, and oxygen saturations were monitored continuously. The colonoscopy was accomplished without difficulty. The patient tolerated the procedure well. Findings: On digital rectal examination there was normal rectal tone. There was mild hemorrhoidal prolapse. There was a healing posterior midline anal fissure with an associated intra anal papilla/fibrosis from healing. The colonoscope was introduced through the anal canal to the rectum and advanced to the cecum. The ileocecal valve and appendiceal orifice were identified. The scope was advanced a short distance into the ileum which appeared normal and there was a clump of mucosa in the distal ileum that was biopsied (probable mild mucosal lymphoid hyperplasia). The scope was then withdrawn into the colon. The cecum, ascending, transverse, descending, sigmoid and rectum were grossly normal. There were no mucosal abnormalities identified. Upon retroflexion within the rectum there were grade 2-3 internal hemorrhoids. 3 columns of hemorrhoids were banded using 3 bands with excellent ligation effect. The preparation was excellent throughout with Coxsackie Preparation Score of 9. The cecal time was 12 minutes. Impression: 1. Normal colonoscopy with intubation of the terminal ileum 2. Grade 2-3 internal hemorrhoids?status post hemorrhoid band ligation x 3 3. Healing posterior midline anal fissure with associated fibrotic tag/papilla in the posterior midline Plan: I would encourage the patient to continue combined MiraLAX plus Metamucil on a regular and daily basis. She may need the nitroglycerin ointment short-term. I will discuss the findings with the patient and family.
[2025-01-17] MEDS: LACTATED RINGERS 1000ML 1,000 ML 50 ML IV (06:50)
--- NOTE | 2025-01-17 07:09 | P.PNANES_ITS ---
[facility] Disclaimer: The information contained in this section may have been updated after the patient was seen, as this information can be updated by other users. Medical History Anxiety with depression Surgical History History of eye surgery History of tonsillectomy and adenoidectomy History of surgery on arm Family History Other Cancer Social History (Updated 01/17/25 @ 06:33 by Shena Carias RN) Smoking Status: Never smoker alcohol intake: never substance use type: denies use current occupational status: employed Travel in the last 8 weeks?: Inside the [place] caffeine: Yes Have you lived/traveled outside [place] in past 30 days?: No Contact w/someone who lives/traveled outside [place] past 30 days?: No Exposure to someone with infectious disease in past 14 days?: No Do you have a fever (greater than 100.4 F or 38 C)?: No Have you tested positive for COVID-19?: No Exposed to someone with COVID-19 in past 14 days?: No Do you have a sore throat?: No Do you have a cough?: No Do you have any weakness?: No Are you experiencing any nausea/vomitting?: No Do you have any diarrhea?: No Are you experiencing any unusual bleeding?: No Do you have any muscle aches/pain?: No Do you have any abdominal pain?: No Are you experiencing loss of taste or smell?: No [facility] Anesthesia Checklist Patient Identification Patient Identification: Arm Band and Verbal (Name & ) Structural Data Admitted From: Home Planned Operative Procedure/s: Colonoscopy Consent for Planned Operative Procedure(s) Verified: Yes Verified Documents: Surgical Consent NPO Status Verified Time NPO: 00:00 Chart Verification Results Verified: HCG Additional verifications Anesthesia Reactions: No Airway Assessment Mallampati Score:: Class II C-Spine Mobility Assessed: Yes TMJ Mobility Assessed: Yes Dentition: Good Dentition Neurological Assessment Level of Consciousness: Awake, Alert and Appropriate Hx Seizures: No Numbness or tingling in extremities: No Anesthesia Plan Anesthesia Risk discussed: Yes Anesthesia Plan: Verified ASA Class: II Anesthesia Type: MAC
[2025-01-17 08:15] VITALS: BP 113/58; PULSE 103; RESP 18; TEMP 36.2; O2SAT 100
[2025-01-17 08:25] VITALS: BP 115/71; PULSE 85; O2SAT 100
[2025-01-17 08:35] VITALS: BP 138/85; PULSE 83; O2SAT 96
[2025-01-17] MEDS: HYDROMORPHONE 2MG/ML SYRINGE 1 MG IV (08:42)
[2025-01-17 08:45] VITALS: BP 113/75; PULSE 88; O2SAT 98
[2025-01-17] MEDS: ONDANSETRON 4MG/2ML VIAL 4 MG IV (09:09)
[2025-01-17 09:15] VITALS: BP 116/72; PULSE 84; RESP 20; O2SAT 99
--- NOTE | 2025-01-17 09:47 | SUR.PHASEII ---
patient had c/o nausea, Dr. Urrutia was made aware and provided a V.O. of 4mg IV zofran. order was written and faxed to pharmacy zofran was administered per APR. patient reports tolerable pain upon discharge. patient reports having po zofran at home if needed for additional needs to manage n/v. patient reports readiness for discharge and was left post op area at 0920.
== END 2025-01-17 09:20 | disposition home or self-care (01) ==
PROVIDERS: PCP Internal Medicine; Visit Provider Internal Medicine Gastroenterology
PROC: 0DJD8ZZ Inspection of Lower Intestinal Tract, Via Natural or Artificial Opening Endoscopic (ICD-10-PCS; CPT 45378; principal; 2025-01-17 08:00)
DX: K62.5 Hemorrhage of anus and rectum (principal); K62.89 Other specified diseases of anus and rectum; K64.2 Third degree hemorrhoids; K60.30 Anal fistula, unspecified; K59.4 Anal spasm; R15.0 Incomplete defecation; Z88.1 Allergy status to other antibiotic agents; Z88.2 Allergy status to sulfonamides; Z79.899 Other long term (current) drug therapy; F41.9 Anxiety disorder, unspecified; F32.A Depression, unspecified
CPT/HCPCS: 45380; 45398; 81025; C1889; J1171; J2003; J2405; J2704; J7120